=== PATIENT | female | born 1985 | race Caucasian/White ===

== ENCOUNTER 2023-06-04 12:55 | Emergency (ER) | payer OTHER ==
[~2023-06-04] VITALS: Ht 149.9 cm; Wt 72.7 kg
[2023-06-04 13:12] VITALS: BP 139/66; PULSE 84; RESP 16; TEMP 98.4
[2023-06-04 13:24] LABS: COVID AG,FIA SOURCE NASAL SWAB
[2023-06-04 13:53] LABS: SARS-COV2 (COVID) ANTIGEN,FIA Negative (Negative)
[2023-06-04 13:58] LABS: RAPID GROUP A STREP NEGATIVE (NEGATIVE)
[2023-06-04 13:59] LABS: INFLUENZA TYPE A NEGATIVE FOR TYPE A (NEGATIVE); INFLUENZA TYPE B NEGATIVE FOR TYPE B (NEGATIVE)
[2023-06-04] MEDS ORDERED: ACET-66 PO (15:25)
[2023-06-04] MEDS ORDERED: CEPH-558 PO (15:25)
== END 2023-06-04 15:39 | disposition home or self-care (01) ==
LOC: EMS 12:58
DX: J02.9 Acute pharyngitis, unspecified (principal); Z20.822 Contact with and (suspected) exposure to COVID-19
CPT/HCPCS: 87430; 87804; 99283